=== PATIENT | male | born 1985 | race Caucasian/White ===

== ENCOUNTER 2020-01-23 11:32 | Emergency (ER) | payer OTHER, SELFPAY ==
[2020-01-23 11:42] VITALS: BP 151/98; PULSE 80; RESP 14; TEMP 36.7; O2SAT 98
--- NOTE | 2020-01-23 11:52 | ED.EYEPROB ---
HPI - Eye Problem General Chief complaint: Eye Problems Stated complaint: right eye swollen/red Time Seen by Provider: 01/23/20 11:52 Source: patient and RN notes reviewed History of Present Illness HPI Narrative: Patient is a 34-year-old male who presents the urgent care with complaints of right eye redness, scratchiness, tearing and sensitivity to light. Patient states that he noticed it yesterday and has been rubbing on the eye consistently. Patient denies of any trauma or injury. States that he may have scratch the eye . No other acute complaints. No acute distress noted. Patient read the plan of care. Related Data Home Medications Medication Instructions Recorded Confirmed No Home Medications 01/23/20 01/23/20 Allergies Allergy/AdvReac Type Severity Reaction Status Date / Time acetaminophen [From Percocet] Allergy Hives Verified 01/23/20 11:51 amoxicillin Allergy Hives Verified 01/23/20 11:51 oxycodone [From Percocet] Allergy Hives Verified 01/23/20 11:51 Penicillins Allergy Hives Verified 01/23/20 11:51 Review of Systems Review of Systems: Narrative: CONSTITUTIONAL: Denies fever, chills, or sweats. EYES: Reports of sensitivity to light to the right eye as well as some mild swelling, redness, and itchiness ENT: Denies rhinorrhea, congestion, sore throat, or otalgia. CARDIOVASCULAR: Denies chest pain, palpitations, or edema. RESPIRATORY: Denies cough or dyspnea. GASTROINTESTINAL: Denies abdominal pain, nausea, vomiting, or diarrhea. GENITOURINARY: Denies dysuria or hematuria. SKIN: Denies rash or itching. MUSCULOSKELETAL: Denies back pain, joint pain, or myalgia. NEUROLOGIC: Denies headache, numbness, or weakness. All other systems reviewed are negative, except as documented in HPI. PMFSH Comments At the time of my signature, I reviewed and agree with the nursing past medical, surgical, social, and family history. There is no relevant family history pertinent to the patient complaint. Exam Narrative: Exam Narrative: GENERAL: This is a well-nourished, well-developed patient, in no apparent distress. HEAD: normocephalic, atraumatic. EYES: PERRL. Sclera clear/white. Vision is grossly intact. Very mild edema to right upper and lower eyelid with mild injected conjunctiva; no obvious trauma or injury to the right eye EARS: External ears normal NOSE: External nose normal with no obvious nasal discharge, nares without redness, no rhinorrhea. THROAT: Mucous membranes moist NECK: Neck supple SKIN: warm, intact with no suspicious lesions or rash, good texture and turgor. NEURO: awake, alert, and oriented to person, place and time. There were no obvious focal neurologic abnormalities. EXTREMITIES: No clubbing, cyanosis, or edema. Course Vital Signs Vital signs: Vital Signs Temperature 98.1 F 01/23/20 11:42 Pulse Rate 80 01/23/20 11:42 Respiratory Rate 14 01/23/20 11:42 Blood Pressure 151/98 H 01/23/20 11:42 Pulse Oximetry 98 01/23/20 11:42 Temperature 98.1 F 01/23/20 11:42 Pulse Rate 80 01/23/20 11:42 Respiratory Rate 14 01/23/20 11:42 Blood Pressure 151/98 H 01/23/20 11:42 Pulse Oximetry 98 01/23/20 11:42 Reviewed?patient is informed that they may have pre-hypertension or hypertension based on a blood pressure reading in the department. I recommend the patient call the primary care provider listed on their discharge instructions or a physician of their choice this week to arrange follow-up for further evaluation of possible pre-hypertension or hypertension. MDM - Eye Problem MDM Narrative Medical decision making narrative: Advised the patient to use the eyedrops to the right eye as directed. Make sure you are wiping off the applicator tip after each use. Do not use any longer than directed. May use eyewash once or twice a day for the next 3 days. If you develop any increase in pain, vision changes, swelling?you need to be seen with an differential repairer KARIN or in the emergenc
== END 2020-01-23 12:08 | disposition home or self-care (01) ==
PROVIDERS: Emergency Provider Nurse Practitioner Family
DX: H57.89 Other specified disorders of eye and adnexa (principal)
CPT/HCPCS: 99203; A9270; G0463